=== PATIENT | female | born 1990 | race Caucasian/White ===

== ENCOUNTER → 2019-10-22 11:38 | Outpatient (CLI) | payer OTHER, SELFPAY ==
--- NOTE | ~2019-10-22 | US_ITS ---
US right upper quadrant EXAMINATION: US Abdomen Complete INDICATION: Right upper quadrant pain. PROCEDURE: Realtime High Resolution abdomen ultrasound. COMPARISON: No prior studies for comparison FINDINGS: There are gallstones. No gallbladder wall thickening or pericholecystic fluid. Common bile duct measures 3 mm. Liver echotexture within normal limits without focal mass. Pancreas within normal limits. Pancreati c tail is obscured by bowel gas. Spleen is unremarkeable. Renal echotexture is within normal limits bilaterally without hydronephrosis, contour deforming mass or renal stone. Right kidney measures 10.1 cm. Visualized aspects of the aorta and IVC are within normal limits. Portal vein is patent. No sonograph ic Correa's sign indicated by the technologist. IMPRESSION: 1: Cholelithiasis. Reviewed, dictated and finalized at location B. IMPRESSION: 1: Cholelithiasis.
== END ==
PROVIDERS: PCP Internal Medicine; Visit Provider Clinical Nurse Specialist
DX: R10.11 Right upper quadrant pain (principal); K80.20 Calculus of gallbladder without cholecystitis without obstruction
CPT/HCPCS: 76705

== ENCOUNTER 2019-10-25 09:44 | Outpatient (CLI) | payer OTHER, SELFPAY ==
--- NOTE | ~2019-10-25 | NM_ITS ---
NM hepatobiliary w pharm 10/25/2019 12:23 Procedure: Hepatobiliary scan performed following IV administration 4.8 mCi Tc 99m Choletec. At 60 m inutes 1.3 mcg CCK administered IV for evaluation of gallbladder ejection fraction. Indication: Right upper quadrant abdominal pain Comparison: Ultrasound dated 10/22/2019 Findings: There is normal radiotracer uptake in the liver parenchyma with prompt excretion into the b iliary tract. Gallbladder visualized at 50 minutes. Small bowel visualized at 20 minutes. Gallbla dder ejection fraction measures 22 %. (Normal is considered 10-90%, but most patients with gallbladde r dysfunction have GBEF of less than 35%) Impression: 1: Gallbladder ejection fraction below normal limits measuring 22%. Low GBEF is associated with gall bladder dysfunction, although not specific for acute or chronic cholecystitis. Reviewed, dictated and finalized at location B. Impression: 1: Gallbladder ejection fraction below normal limits measuring 22%. Low GBEF i s associated with gallbladder dysfunction, although not specific for acute or c hronic cholecystitis.
== END 2019-10-25 09:45 | disposition home or self-care (01) ==
PROVIDERS: PCP Internal Medicine; Visit Provider Internal Medicine
DX: K80.20 Calculus of gallbladder without cholecystitis without obstruction (principal)
CPT/HCPCS: 78227; A9537; J2805

== ENCOUNTER 2019-11-02 12:40 | Outpatient (CLI) | payer OTHER, SELFPAY ==
[2019-11-02 13:25] LABS: Alanine Aminotransferase 11 U/L (4-35); Albumin Level 4.5 g/dL (3.5-5.1); Alkaline Phosphatase 51 U/L (38-126); Amylase 91 U/L (30-110); Aspartate Amino Transferase 17 U/L (14-36); Bilirubin,Total 0.6 mg/dL (0.2-1.3); Lipase 92 U/L (23-300)
== END 2019-11-02 12:41 | disposition home or self-care (01) ==
PROVIDERS: PCP Internal Medicine; Visit Provider Surgery
DX: K80.10 Calculus of gallbladder with chronic cholecystitis without obstruction (principal); Z01.812 Encounter for preprocedural laboratory examination
CPT/HCPCS: 36415; 80076; 82150; 83690; 86850; 86900; 86901

== ENCOUNTER 2019-11-04 05:03 | Outpatient (CLI) | payer OTHER, SELFPAY ==
[2019-11-05 22:34] LABS: SARS-CoV-2 RNA PCR Negative
== END 2019-11-04 05:04 | disposition home or self-care (01) ==
LOC: ANHCOVIDDT 05:03
PROVIDERS: PCP Internal Medicine; Visit Provider Surgery
DX: Z01.812 Encounter for preprocedural laboratory examination (principal); Z11.59 Encounter for screening for other viral diseases
CPT/HCPCS: 87635; C9803; U0003

== ENCOUNTER 2019-11-06 02:09 | Day surgery (SDC) | payer OTHER, SELFPAY ==
[2019-10-30 15:55] VITALS: BMI 26.4
[2019-10-31 09:35] VITALS: BMI 26.4
--- NOTE | 2019-11-05 13:00 | P.PNAN_ITS ---
Anes - Initial Pre Proc Eval Procedure: Operation Date: 11/06/19 12:00 Proposed Procedures p Laparoscopic Cholecystectomy - Zenaida Monson MD Date/Time: 11/05/19 13:00 Surgeon: Zenaida Monson MD Pre Op Diagnosis: Chronic Cholecystitis With Cholelithiasis Patient Data Age: 28 Gender: F Height: 1.55 m Weight: 63.5 kg Allergies Allergy/AdvReac Type Severity Reaction Status Date / Time No Known Allergies Allergy Verified 11/06/19 10:36 Home Medications Medication Instructions Recorded Confirmed Type sertraline 50 mg tablet 50 mg PO DAILY 09/10/19 11/06/19 History biotin 1 mg capsule 1 mg PO DAILY 10/28/19 11/06/19 History Patient hx anesthesia problems: none Family hx anesthesia problems: none PMF Past Medical History Medical History (Updated 11/05/19 @ 13:02 by Ramon Wade MD) Asthma Chronic cholecystitis with calculus Depression High cholesterol Migraine Overweight (BMI 25.0-29.9) Surgical History Surgical History H/O section 2017 H/O prior ablation treatment May 2019 Social History Social History (Updated 10/29/19 @ 09:05 by Rosa Isela Davis CMA) Smoking status: Never smoker Alcohol intake: current Drinks per week: 3 Substance use: never 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 Questions were solicited and answers provided to the satisfaction of the patient/family/POA.
[2019-11-06] VITALS (9 sets, daily range): BP systolic 87–107; BP diastolic 46–68; PULSE 48–97; RESP 11–20; TEMP 36.6–36.9; O2SAT 97–100
[2019-11-06] MEDS: LACTATED RINGERS 1,000 ML 30 ML IV CONT ×2 (10:23→12:25)
[2019-11-06] MEDS: KETOROLAC 15 MG/ML VIAL (*BKC) IV PUSH (11:06)
--- NOTE | 2019-11-06 11:28 | WPDHPUPDATE1 ---
History and Physical Update Update Date/Time: 11/06/19 11:28 History and Physical has been reviewed, including an updated exam of the patient. There are NO changes in the patient's condition. Risks, benefits, and alternatives have been discussed and questions answered. Patient agrees to proceed with procedure.
[2019-11-06] MEDS: BUPIVACAINE/EPINEPHRINE 0.5% 10 ML VIAL 40 ML INFILTRATE (12:01)
--- NOTE | 2019-11-06 12:20 | PM.PROC ---
Procedure Note - Detailed Date of procedure: 11/06/19 Pre-op diagnosis: Chronic Cholecystitis With Cholelithiasis Post-op diagnosis: same Procedure performed: laparoscopic cholecystectomy Description of procedure: The patient was taken to the operating room placed in the supine position. After adequate induction of general anesthesia, the patient was prepped and draped in normal sterile fashion. A time-out was then performed to verify the patient's identity as well as the procedure being performed. I then made a 5 mm incision in the infraumbilical region. Through this, a Veress needle was placed into the peritoneal cavity and CO2 gas was then insufflated. After adequate pneumoperitoneum was achieved, the Veress needle was removed and a 5 mm trocar was placed through this incision. I then placed the laparoscope through this trocar site and under direct visualization placed a further 12 mm subxiphoid port as well as 2 additional 5 mm ports in the right upper abdomen. The gallbladder was then identified and was noted to be slightly inflamed. I was able to place a grasper at the dome of the gallbladder and this was retracted anterior and cephalad up over the liver. A 2nd retractor was then placed at the infundibulum and retracted laterally, this allowed visualization of the triangle of Calot. I then was able to visualize the cystic duct in its entirety from its proximal insertion into the gallbladder, to its distal junction with the common hepatic/common bile duct junction. At this point, I carefully skeletonized the proximal cystic duct with the [place] dissector. I then clipped and transected the proximal cystic duct. Next I visualized the cystic artery. Again the artery was skeletonized, clipped, and transected. I then used the Bovie cautery to take down the peritoneal attachments of the gallbladder off the liver bed. Once the gallbladder specimen was completely detached, an endo-pouch was placed through the 12 mm port site. I then placed the gallbladder specimen into the Endo pouch and removed the endo-pouch from the 12 mm port site. The specimen will now be sent to pathology for further review. I then copiously irrigated the right upper quadrant. Hemostasis was noted in the liver bed, the clips were noted to be in good position on both the cystic duct stump and the cystic artery stump. No other pathology was noted in the right upper quadrant. I then moved the laparoscope to the subxiphoid port. No iatrogenic injury or other pathology was noted in the lower abdomen. At this point, the abdomen was desufflated and all ports removed. The fascia of the 12 mm subxiphoid port was closed with a 0 Vicryl figure of 8 suture. All port sites were then closed with 4.O Monocryl subcuticular sutures. Dermabond was placed on each incision. The patient tolerated the procedure well, was extubated in the operating room postoperative and will be transferred to the recovery room in stable condition. Implants: none Anesthesia: GETA Surgeon: Zenaida Monson MD Estimated blood loss (mL): 5 Drains: No Packing: No Pathology: yes Complications: No immediate complications Condition: stable Disposition: PACU Findings: mild cholecystitis
--- NOTE | 2019-11-06 14:27 | SUR.PHASEII ---
1400- Pts preferred pharmacy ([facility] in [place]) informed her while she was still here that they did not have in stock the medication the Dr had prescribed. Called Dr Monson's office and spoke to Cathy (?). She said she would call and relay this. Pt said that the medication could be called to another named pharmacy ([facility] on [facility] in [place]). Pt made aware of this and instructed to check with Eladio after she gets home to check if filled.
== END 2019-11-06 14:40 | disposition home or self-care (01) ==
PROVIDERS: PCP Internal Medicine; Visit Provider Surgery
PROC: 0FT44ZZ Resection of Gallbladder, Percutaneous Endoscopic Approach (ICD-10-PCS; CPT 47562; principal; 2019-11-06 12:00)
DX: K80.10 Calculus of gallbladder with chronic cholecystitis without obstruction (principal); F32.9 Major depressive disorder, single episode, unspecified
CPT/HCPCS: 47562; 88304; A9270; J0690; J1100; J1885; J2250; J2405; J2704; J2710; J3010; J7030; J7120

== ENCOUNTER 2019-11-09 08:28 | Emergency (ER) | payer OTHER, SELFPAY ==
--- NOTE | ~2019-11-09 | CT_ITS ---
EXAMINATION: CT abdomen pelvis w con EXAM DATE: 11/09/2019 09:41 INDICATION: Cholecystectomy 3 days ago. Right upper quadrant pain radiating to back. TECHNIQUE: Spiral CT of the abdomen and pelvis was performed following intravenous injection of 100 m L Omnipaque 350. Axial, coronal and sagittal images were reviewed. The dose-length product (DLP) fo r this examination was 344.53 mGy-cm. The exposure was tailored according to patient size (auto mA e xposure control), and iterative reconstruction (ASIR) was used as additional dose reduction technique . There is no prior study for comparison. FINDINGS: The liver, spleen, adrenal glands and pancreas are unremarkable. There are cholecystectomy clips. Gallbladder fossa, surgical bed as only small amount of fat stranding likely postoperative. N o subhepatic fluid collection. There is small amount of free pelvic fluid, statistically most likely from ruptured ovarian follicle. Portal and splenic veins are patent. Kidneys enhance symmetrically. There is no hydronephrosis. The uterus is unremarkable. There is right adnexal 3.8 cm lesion like ly physiologic or hemorrhagic cyst. Smaller left ovarian physiologic cyst. The bladder is unremarkab le. There is no retroperitoneal or pelvic lymphadenopathy. The appendix is normal. The stomach and small bowel are unremarkable. There is expected amount of c olonic stool. No free intraperitoneal gas. The heart is normal in size. There are no pericardial or pleural effusions. The lung bases are unremarkable. The bones are unremarkable. IMPRESSION: 1. Unremarkable cholecystectomy bed. 2. Right ovarian 3.8 cm physiologic or hemorrhagic cyst. Reviewed, dictated and finalized at location A.
[2019-11-09 08:31] VITALS: BP 123/97; PULSE 78; RESP 18; TEMP 36.5; O2SAT 100
--- NOTE | 2019-11-09 08:45 | ED.ABDPAIN ---
HPI - Abdominal Pain General Chief Complaint: Abdominal Pain Stated Complaint: Pain All Over Time Seen by Provider: 11/09/19 08:32 History of Present Illness HPI narrative: Severe burning epigastric pain since this morning. Radiates into her back and throughout her abdomen. She had her gall bladder removed 3 days ago. This Feels like gallbladder pain, but worse. She has not had a bowel movement in days. She did not try taking her pain medication today. No vomiting Related Data Home Medications Medication Instructions Recorded Confirmed sertraline 50 mg tablet 50 mg PO DAILY 09/10/19 11/06/19 biotin 1 mg capsule 1 mg PO DAILY 10/28/19 11/06/19 Allergies Allergy/AdvReac Type Severity Reaction Status Date / Time No Known Allergies Allergy Verified 11/09/19 08:34 Review of Systems Review of Systems: All systems reviewed & are unremarkable except as noted in HPI and below Constitutional: Constitutional: Denies fever(s) Cardiovascular: Cardiovascular: Denies chest pain Respiratory: Respiratory: Denies dyspnea Gastrointestinal: Gastrointestinal: Reports abdominal pain and Reports constipation Genitourinary: Genitourinary: Denies hematuria and Denies dysuria Musculoskeletal: Musculoskeletal: Reports back pain Neurologic: Denies dizziness and Denies weakness [facility] Past Medical History Medical History Asthma Chronic cholecystitis with calculus Depression High cholesterol Migraine Overweight (BMI 25.0-29.9) Surgical History Surgical History (Updated 11/09/19 @ 13:47 by Mark Headley MD) H/O section 2017 H/O prior ablation treatment May 2019 Hx of cholecystectomy Social History Social History (Updated 10/29/19 @ 09:05 by Rosa Isela Davis [facility]) Smoking status: Never smoker Alcohol intake: current Drinks per week: 3 Substance use: never 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 Gender identity (if verbalized by the patient): Female Spiritual care concerns: No Exam Const: General: healthy appearing and alert Orientation/consciousness: patient oriented x3 Other: mild distress HENMT: Head: normal to inspection Neck: Neck: normal visual inspection and no lymphadenopathy Chest: Chest palpation & inspection: no tenderness Resp: Effort & Inspection: normal respiratory effort Auscultation: clear to auscultation bilaterally, no rales, no rhonchi and no wheezes Cardio: Jugular venous distension: no JVD Rate: regular rate Rhythm: regular rhythm Heart sounds: no murmurs GI: Inspection: non-distended GI Palp: Yes Soft to palpation, Yes Tenderness to palpation present (GI) (diffuse), Yes Guarding due to palpation present (GI) and No Rebound tenderness present Skin: General skin exam: normal color Neuro: General: patient oriented x3 and moves all extremities Speech: normal speech Extrem: General: no edema Psych: Appearance: well kempt Affect: normal affect Course Vital Signs Vital signs: Vital Signs Temperature 36.5 C 11/09/19 08:31 Pulse Rate 78 11/09/19 08:31 Respiratory Rate 18 11/09/19 08:31 Blood Pressure 123/97 H 11/09/19 08:31 Pulse Oximetry 100 11/09/19 08:31 Temperature 36.5 C 11/09/19 10:00 Pulse Rate 56 L 11/09/19 10:57 Respiratory Rate 18 11/09/19 10:57 Blood Pressure 91/58 L 11/09/19 10:57 Pulse Oximetry 100 11/09/19 10:57 MDM - Abdominal Pain MDM Narrative Medical decision making narrative: CT negative for acute findings. She does have some stool and gas that could be contributing along with normal post-op pain. Case discussed with Dr. De Paz Medical Records Attestation: I reviewed the patient's medical records. Lab Data Attestation: I reviewed the patient's lab results. Result diagrams: 11/09/19 09:00 11/09/19 09:00 Labs: Lab Results 11/09/19 11/09/19 11/09/19 Range/Units 09:00 09:00 09
[2019-11-09] MEDS: SODIUM CHLORIDE 0.9% IV 1,000 ML 999 ML IV CONT (08:56)
[2019-11-09 08:59] VITALS: BP 104/63; PULSE 66; RESP 24; O2SAT 100
[2019-11-09 09:07] LABS: Basophils Percent Auto 0.3 % (0.2-1.2); Eosinophils Absolute Auto 0.1 K/mm3 (0-0.3); Eosinophils Percent Auto 1.1 % (0-4.4); Hemoglobin 14.2 g/dL (12.0-15.0); Immature Granulocyte Absolute 0.02 K/mm3 (0.00-0.031); Immature Granulocyte Percent A 0.3 % (0-0.5); Lymphocytes Absolute Auto 3.21 K/mm3 (0.9-3.2); Lymphocytes Percent Auto 40.3 % (18.3-44.2); Mean Corpuscular HGB Conc 33.8 g/dl (32-36); Mean Corpuscular Hemoglobin 30.8 pg (26-34); Mean Corpuscular Volume 91.1 fl (80-100); Mean Platelet Volume 11.7 fl (7.4-10.4); Monocytes Absolute Auto 0.6 K/mm3 (0.1-0.6); Monocytes Percent Auto 7.4 % (2.6-8.5); Neutrophils Percent Auto 50.6 % (45.5-73.1); Platelet Count Result 174 k/mm3 (150-375); Red Blood Count 4.61 M/mm3 (4.2-5.4); Red Cell Distribution Width 12.2 % (11.5-14.5)
[2019-11-09 09:09] LABS: Appearance Urine Clear (Clear); Bilirubin Urine Negative (Negative); Color Urine Yellow (Yellow); Glucose Urine UA Negative (Negative); Ketones Urine Negative (Negative); Leukocyte Esterase Ur Negative LEU/UL (Negative); Nitrate Urine Negative (Negative); Protein Urine Negative (Negative); Urobilinogen Urine 0.2 mg/dL (<2.0); pH Urine 6.5 (5.0-9.0)
[2019-11-09 09:10] LABS: Add Urine Microscopic? YES; Blood Urine Trace-Intact (Negative)
[2019-11-09 09:18] LABS: Alanine Aminotransferase 17 U/L (4-35); Albumin Level 4.3 g/dL (3.5-5.1); Alkaline Phosphatase 48 U/L (38-126); Anion Gap 13.4 mmol/L (7-16); Aspartate Amino Transferase 29 U/L (14-36); Bilirubin,Total 0.6 mg/dL (0.2-1.3); Blood Urea Nitrogen 10 mg/dL (7-17); Calcium 9.3 mg/dL (8.4-10.2); Carbon Dioxide 23 mmol/L (22-30); Chloride 103 mmol/L (98-107); Estimated CRCL calculation 90 ml/min; Estimated Glomerular Filt Rate > 60; Glucose 108 mg/dL (65-105); Lipase 79 U/L (23-300); Potassium 3.4 mmol/L (3.4-5.0); Sodium 136 mmol/L (137-145)
[2019-11-09 09:20] LABS: Bacteria Urine Trace /hpf; Mucus Urine Few /lpf; RBC Urine 0-2 /hpf (0-2); Squamous Epithelial Cell Urine Many /hpf (Few); WBC Urine 0-3 /hpf
[2019-11-09 10:00] VITALS: TEMP 36.5
[2019-11-09 10:10] VITALS: BP 92/64; PULSE 52; RESP 18; O2SAT 100
[2019-11-09 10:57] VITALS: BP 91/58; PULSE 56; RESP 18; O2SAT 100
== END 2019-11-09 10:58 | disposition home or self-care (01) ==
PROVIDERS: Emergency Provider Emergency Medicine; PCP Internal Medicine
DX: G89.18 Other acute postprocedural pain (principal); R10.13 Epigastric pain; J45.909 Unspecified asthma, uncomplicated; E78.00 Pure hypercholesterolemia, unspecified; F32.9 Major depressive disorder, single episode, unspecified; N83.201 Unspecified ovarian cyst, right side
CPT/HCPCS: 36415; 74177; 80053; 81001; 81025; 83690; 85025; 96361; 96374; 99284; J3010; J7030; Q9967

== ENCOUNTER → 2021-12-23 09:26 | Outpatient (CLI) | payer OTHER, SELFPAY ==
--- NOTE | ~2021-12-23 | US_ITS ---
US breast BI complete DATE: 12/23/2021 10:06 INDICATION: Bilateral breast lumps felt by physician on examination TECHNIQUE: Real-time imaging of complete bilateral breasts, including all 4 quadrants and subareolar areas COMPARISON: None FINDINGS: No suspicious mass or shadowing, cyst or other significant sonographic finding is noted in either breast. IMPRESSION: BI-RADS Category 1: Negative Reviewed, dictated and finalized at Location A. Reviewed, dictated and finalized at location A.
== END ==
PROVIDERS: PCP Internal Medicine; Visit Provider Nurse Practitioner
DX: N63.20 Unspecified lump in the left breast, unspecified quadrant (principal)
CPT/HCPCS: 76641

== ENCOUNTER 2022-07-05 14:28 | Outpatient (CLI) | payer OTHER, SELFPAY ==
[2022-07-05 15:43] LABS: Kit Draw Collected
== END 2022-07-05 14:29 | disposition home or self-care (01) ==
LOC: ANHGOSHLAB 14:29
PROVIDERS: PCP Internal Medicine; Visit Provider Clinical Nurse Specialist
DX: J03.91 Acute recurrent tonsillitis, unspecified (principal)
CPT/HCPCS: 36415

== ENCOUNTER 2023-07-19 13:32 | Emergency (ER) | payer OTHER, SELFPAY ==
--- NOTE | ~2023-07-19 | US_ITS ---
EXAMINATION: US pelvic complete DATE: 07/19/2023 17:17 INDICATION: Right adnexal pain Comparison:No prior studies for comparison. TECHNIQUE: Multiple transabdominal sonographic images of the pelvis performed. FINDINGS: The uterus measures 7.9 x 2.8 x 4.5 cm. Endometrium is not delineated for measurement. The right ovary measures 3.6 x 1.9 x 2.4 cm and the left ovary measures 4.3 x 1.6 x 3.2 cm. There ar e small follicles in each ovary. Normal doppler signal in both ovaries. There is no free fluid in the pelvis. There are no abnormal masses seen on either side. IMPRESSION: 1. Unremarkable pelvic ultrasound. Endometrium not well delineated. Reviewed, dictated and finalized at location A.
--- NOTE | ~2023-07-19 | CT_ITS ---
EXAMINATION: CT abdomen pelvis w con DATE: 07/19/2023 15:03 INDICATION: Right lower quadrant abdominal pain TECHNIQUE: Computed tomography (CT) of the abdomen and pelvis was performed with 100 cc Omnipaque 350 intravenous contrast. The dose-length product was 558.89 mGy-cm. Automated exposure control and iter ative reconstruction technique were employed. COMPARISON: None. FINDINGS: Lung bases are unremarkable. Heart size is normal. No significant pleural or pericardial ef fusion. Status post cholecystectomy. The liver, spleen, pancreas, adrenal glands and kidneys are unre markable. Status post cholecystectomy. There is free fluid in the right pelvis and pelvic cul-de-sac. Appendix is normal. There is a 2 cm right adnexal cyst, likely ovarian. No significant vascular abnor mality. Nonobstructive bowel pattern. No acute osseous abnormality. No free fluid or free air. No lym phadenopathy. IMPRESSION: 1. Right adnexal cyst measuring 2 cm, likely ovarian. Free fluid in the pelvis, likely physiologic. Reviewed, dictated and finalized at location A.
[2023-07-19 13:33] VITALS: BP 118/73; PULSE 87; RESP 16; TEMP 36.3; O2SAT 99
--- NOTE | 2023-07-19 14:30 | ED.ABDPAIN ---
HPI - Abdominal Pain General Chief Complaint: Abdominal Pain <Mack Christensen APRN - Last Filed: 07/19/23 14:32> Stated Complaint: LOWER ABD PAIN <Mack Christensen APRN - Last Filed: 07/19/23 14:32> Time Seen by Provider: 07/19/23 14:30 <Mack Christensen APRN - Last Filed: 07/19/23 14:32> Focused HPI: Tati is a 32-year-old male patient presenting to the ER today with complaints of lower abdominal pain that started at 7:45 a.m. this morning. She reports the pain is stabbing in nature and comes in waves. No history of kidney stones. Does report some associated nausea without vomiting or diarrhea. No fever or chills. Rates the pain currently a 5 to 7/10. History of in 2018, uterine ablation in 2019 and lap choly in 2019. Contacted her doctor regarding her abdominal pain and they were concerned that she may have appendicitis and recommend she come into the of emergency room for evaluation. General: Well-developed, well nourished, in no apparent distress. Head: Normocephalic, atraumatic. Cardio: Regular rate and rhythm, s1 and s2 normal, no murmur appreciated. Resp: Clear to auscultation bilaterally, no rhonchi, rales, wheezing or rubs. Abdomen: Soft, pliable, bowel sounds present in all quadrants, tender to palpation over the right lower quadrant, mid abdomen, and mid lower abdomen, no organomegly, no CVAT tenderness. Patient screened in triage and initial orders placed. Additional care and disposition to be based upon diagnostic testing and treatment. <Mack Christensen APRN - Last Filed: 07/19/23 14:32> Source: patient <Mack Christensen APRN - Last Filed: 07/19/23 14:32> Mode of arrival: ambulatory <Mack Christensen APRN - Last Filed: 07/19/23 14:32> Limitations: no limitations <Mack Christensen APRN - Last Filed: 07/19/23 14:32> History of Present Illness HPI narrative: Agree with above HPI <Wu Vazquez MD - Last Filed: 07/19/23 17:56> Related Data Home Medications: Home Medications Medication Instructions Recorded Confirmed multivitamin 1 tablet PO DAILY 08/15/22 08/15/22 <Mack Christensen APRN - Last Filed: 07/19/23 14:32> Allergies/Adverse Reactions: Allergies Allergy/AdvReac Type Severity Reaction Status Date / Time No Known Allergies Allergy Verified 08/15/22 08:08 <Mack Christensen APRN - Last Filed: 07/19/23 14:32> [facility] Past Medical History Medical History: Medical History Asthma Chronic cholecystitis with calculus Depression High cholesterol Migraine Overweight (BMI 25.0-29.9) <Mack Christensen APRN - Last Filed: 07/19/23 14:32> Surgical History Surgical History: Surgical History H/O section 2017 H/O prior ablation treatment May 2019 Hx of cholecystectomy <Mack Christensen APRN - Last Filed: 07/19/23 14:32> Family History Family History: Family History Mother Hypertension Father Malignant neoplasm of prostate <Mack Christensen APRN - Last Filed: 07/19/23 14:32> Social History Social History: Social History Social History: Caffeine-coffee/tea Smoking status: Never smoker Alcohol intake: current Drinks per week: 3 Alcohol use details: socially Substance use: never Lack of Transportation: No Lack of Food: Never True Current Housing: I Have Housing Concerned About Future Housing: No Difficulty Paying Gas/Electric Bills: No Difficulty Paying for Meds: No Currently Unemployed: No Education: Bachelor's Degree Difficulty w/ Childcare or Family Care: No Living arrangements: with family Occupation/Education: occupation Additional occupation/education comments: admin
[2023-07-19 14:58] LABS: Basophils Percent Auto 0.3 % (0.2-1.2); Hematocrit 44.9 % (37.0-47.0); Hemoglobin 15.2 g/dL (12.0-15.0); Immature Granulocyte Absolute 0.03 K/mm3 (0.00-0.031); Immature Granulocyte Percent A 0.3 % (0-0.5); Lymphocytes Absolute Auto 1.41 K/mm3 (0.9-3.2); Lymphocytes Percent Auto 14.3 % (18.3-44.2); Mean Corpuscular HGB Conc 33.9 g/dl (32-36); Mean Corpuscular Hemoglobin 31.1 pg (26-34); Mean Platelet Volume 11.2 fl (7.4-10.4); Monocytes Absolute Auto 0.4 K/mm3 (0.1-0.6); Monocytes Percent Auto 4.4 % (2.6-8.5); Neutrophils Absolute Auto 7.9 K/mm3 (1.3-6.7); Neutrophils Percent Auto 80.7 % (45.5-73.1); Platelet Count Result 239 k/mm3 (150-375); Red Blood Count 4.88 M/mm3 (4.2-5.4); Red Cell Distribution Width 12.5 % (11.5-14.5); White Blood Count 9.8 K/mm3 (4.5-10.0)
[2023-07-19 15:01] LABS: Appearance Urine Clear (Clear); Bilirubin Urine Negative (Negative); Blood Urine Negative (Negative); Color Urine Yellow (Yellow); Glucose Urine UA Negative (Negative); Ketones Urine Negative (Negative); Leukocyte Esterase Ur Negative LEU/UL (Negative); Nitrate Urine Negative (Negative); Protein Urine Negative (Negative); Specific Grav Ur 1.006 (1.001-1.035); Urobilinogen Urine 0.2 mg/dL (<2.0); pH Urine 7.5 (5.0-9.0)
[2023-07-19 15:02] LABS: Add Urine Microscopic? NO
[2023-07-19 15:14] LABS: Alanine Aminotransferase 16 U/L (6-35); Albumin Level 5.1 g/dL (3.5-5.1); Alkaline Phosphatase 55 U/L (38-126); Anion Gap 9 mmol/L (4-12); Aspartate Amino Transferase 24 U/L (14-36); Bilirubin,Total 0.7 mg/dL (0.2-1.3); Blood Urea Nitrogen 12 mg/dL (7-17); Calcium 10.3 mg/dL (8.4-10.2); Carbon Dioxide 24 mmol/L (22-30); Chloride 106 mmol/L (98-107); Estimated CRCL calculation 126 ml/min; Estimated Glomerular Filt Rate > 60; Glucose 96 mg/dL (65-110); Lipase 93 U/L (23-300); Potassium 4.1 mmol/L (3.4-5.0); Sodium 139 mmol/L (137-145)
[2023-07-19 15:32] VITALS: BP 112/69; PULSE 67; RESP 18; O2SAT 100
[2023-07-19 16:00] VITALS: BP 121/78; PULSE 62; RESP 15; O2SAT 100
[2023-07-19] MEDS: ONDANSETRON INJ 4 MG/2 ML VIAL IV PUSH (16:15)
[2023-07-19] MEDS: MORPHINE SULFATE (*CRX) 4 MG/ML INJ IV PUSH (16:15)
[2023-07-19 18:05] VITALS: PULSE 66; RESP 15; O2SAT 99
[2023-07-20 11:38] LABS: Estimated CRCL calculation 93 ml/min; Estimated Glomerular Filt Rate > 60
== END 2023-07-19 18:06 | disposition home or self-care (01) ==
PROVIDERS: Nurse Practitioner Family; Emergency Provider Emergency Medicine; PCP Internal Medicine
DX: N83.201 Unspecified ovarian cyst, right side (principal); J45.909 Unspecified asthma, uncomplicated; E78.00 Pure hypercholesterolemia, unspecified; E66.3 Overweight; Z68.29 Body mass index [BMI] 29.0-29.9, adult; Z90.49 Acquired absence of other specified parts of digestive tract
CPT/HCPCS: 36415; 74177; 76856; 80053; 81003; 81025; 82565; 83690; 85025; 96374; 96375; 99284; J2270; J2405; Q9967